=== PATIENT | female | born 1950 | race Caucasian/White ===

== ENCOUNTER → 2019-11-11 14:21 | Outpatient (CLI) | payer MEDICARE, OTHER, SELFPAY ==
--- NOTE | ~2019-11-11 | XR_ITS ---
EXAMINATION: XR knee RT 2V DATE: 11/11/2019 14:39 INDICATION: Right knee pain. TECHNIQUE: 2 views of right knee were obtained. COMPARISON: None. FINDINGS: Bone alignment is normal. No fracture. There is mild tricompartmental osteoarthritis. No kn ee joint effusion. IMPRESSION: 1. Mild right knee osteoarthritis. Reviewed, dictated and finalized at location A. F LABORER
--- NOTE | ~2019-11-11 | XR_ITS ---
EXAMINATION: XR knee LT 2V DATE: 11/11/2019 14:39 INDICATION: Left knee pain. TECHNIQUE: 2 views of left knee were obtained. COMPARISON: None. FINDINGS: Bone alignment is normal. No fracture. There is mild osteoarthritis of medial and patellofe moral compartments and moderate osteoarthritis of lateral compartment. No knee joint effusion. IMPRESSION: 1. Moderate left knee osteoarthritis. Reviewed, dictated and finalized at location A. [employer] MANAGER
== END ==
PROVIDERS: Visit Provider Nurse Practitioner Family
DX: M17.0 Bilateral primary osteoarthritis of knee (principal)
CPT/HCPCS: 73560